=== PATIENT | female | born 1935 | race Caucasian/White ===

== ENCOUNTER 2020-02-03 07:59 | Emergency (ER) | payer MEDICARE, MEDICAID ==
[~2020-02-03] VITALS: Ht 154.9 cm; Wt 77.0 kg
[~2020-02-03 07:59] MED LIST: CHOL100046 PO; LISI2.5T47 PO; OLOP2.5D EACHEYE; RANI15SY PO; SIMV10TA97 PO; ZOLE4VIA IV
[2020-02-03 08:02] VITALS: BP 140/79
== END 2020-02-03 08:40 | disposition home or self-care (01) ==
LOC: ER 07:59
DX: R04.0 Epistaxis (principal); I10 Essential (primary) hypertension; M19.90 Unspecified osteoarthritis, unspecified site; Z88.0 Allergy status to penicillin; Z88.8 Allergy status to other drugs, medicaments and biological substances; Z91.041 Radiographic dye allergy status
CPT/HCPCS: 99283